=== PATIENT | female | born 1945 | race Caucasian/White ===

== ENCOUNTER → 2023-05-01 14:04 | Outpatient (BNVA) | payer MEDICARE, OTHER, SELFPAY | PROVIDERS: PCP Family Medicine; Referring Provider Nurse Practitioner Family; Visit Provider Physician Assistant | DX: M47.818 Spondylosis without myelopathy or radiculopathy, sacral and sacrococcygeal region; M16.11 Unilateral primary osteoarthritis, right hip; M51.36 Other intervertebral disc degeneration, lumbar region; M43.16 Spondylolisthesis, lumbar region; M48.061 Spinal stenosis, lumbar region without neurogenic claudication | CPT/HCPCS: 72110; 73502; 99204 ==

== ENCOUNTER 2023-05-16 07:40 | Outpatient (CLI) | payer MEDICARE, OTHER, SELFPAY ==
--- NOTE | 2023-05-16 08:00 | MR_ITS ---
WS: [id number] MRI LUMBAR SPINE NONCONTRAST TECHNIQUE: Sagittal T1, T2 and STIR imaging. Axial T1 and T2 imaging. CLINICAL INFORMATION: pain COMPARISON: None. FINDINGS: Mild lumbar curve. No acute compression. Slight retrolisthesis L2 on L3 and L3 on L4. Slight anteroli sthesis L4 on L5 and L5 on S1. L1-L2: Mild disc bulging with slight effacement of the ventral thecal sac. Slight narrowing of the le ft subarticular recess. Mild to moderate arthropathy. Mild left foraminal narrowing. L2-L3: Disc osteophyte complex with endplate ridging. Narrowing of the left greater than right subart icular recess. Moderate facet arthropathy. Mild left foraminal narrowing. L3-L4: Mild disc bulging with narrowing of the subarticular recess bilaterally. Moderate facet arthro [place]. Mild left greater than right foraminal narrowing. Moderate facet arthropathy. L4-L5: Grade 1 anterolisthesis. Mild to moderate central canal stenosis. Impingement of traversing L5 nerve roots. Advanced facet arthropathy. Mild to moderate right and no significant left foraminal na rrowing. L5-S1: Slight anterolisthesis L5 on S1. Advanced facet arthropathy. Mild left greater than right fora tea narrowing. Incidental Tarlov cyst in the sacrum. Tiny right renal cyst. Visualized pelvic bony structures: Normal. Paravertebral soft tissues: Normal. Chronic anterior wedging in the midthoracic spine on the credit product analyst imaging at T9. Moderate spondylitic ch anges cervical spine. IMPRESSION: 1. Lumbar scoliosis. No acute compression. 2. Grade 1 anterolisthesis L4 on L5 with mild to moderate central canal stenosis and impingement of the traversing L5 nerve roots bilaterally. 3. Mild to moderate right L4-5 foraminal narrowing. 4. Grade 1 anterolisthesis L5 on S1 with advanced facet arthropathy. 5. Narrowing of the left L2-3 and bilateral 3-4 subarticular recess. 6. Mild foraminal narrowing worse at left L2-3 and left L3-4. 7. Advanced facet arthropathy L4-L5 and L5-S1.
== END 2023-05-16 07:41 | disposition home or self-care (01) ==
PROVIDERS: PCP Family Medicine; Visit Provider Physician Assistant
DX: M41.9 Scoliosis, unspecified (principal); M48.061 Spinal stenosis, lumbar region without neurogenic claudication; M47.817 Spondylosis without myelopathy or radiculopathy, lumbosacral region
CPT/HCPCS: 72148

== ENCOUNTER → 2023-05-22 10:14 | Outpatient (BNVA) | payer MEDICARE, OTHER, SELFPAY | PROVIDERS: PCP Family Medicine; Visit Provider Physician Assistant | DX: M25.561 Pain in right knee (principal); M16.11 Unilateral primary osteoarthritis, right hip; M43.16 Spondylolisthesis, lumbar region; M51.36 Other intervertebral disc degeneration, lumbar region | CPT/HCPCS: 73560; 73565; 99214 ==

== ENCOUNTER → 2023-06-12 09:26 | Outpatient (BNVA) | payer MEDICARE, OTHER, SELFPAY | PROVIDERS: PCP Family Medicine; Visit Provider Anesthesiology Pain Medicine | DX: M43.16 Spondylolisthesis, lumbar region; M47.818 Spondylosis without myelopathy or radiculopathy, sacral and sacrococcygeal region; M51.36 Other intervertebral disc degeneration, lumbar region; M16.11 Unilateral primary osteoarthritis, right hip | CPT/HCPCS: 99205 ==

== ENCOUNTER → 2023-07-03 13:03 | Outpatient (BNVA) | payer MEDICARE, OTHER, SELFPAY | PROVIDERS: PCP Family Medicine; Visit Provider Anesthesiology Pain Medicine | DX: M16.11 Unilateral primary osteoarthritis, right hip | CPT/HCPCS: 20610; 77002; J1030; J3490 ==

== ENCOUNTER → 2023-07-16 12:54 | Outpatient (BNVA) | payer MEDICARE, OTHER, SELFPAY | PROVIDERS: PCP Family Medicine; Visit Provider Anesthesiology Pain Medicine | DX: M43.16 Spondylolisthesis, lumbar region; M47.818 Spondylosis without myelopathy or radiculopathy, sacral and sacrococcygeal region; M51.36 Other intervertebral disc degeneration, lumbar region; M16.11 Unilateral primary osteoarthritis, right hip | CPT/HCPCS: 99214 ==

== ENCOUNTER → 2023-08-28 13:05 | Outpatient (BNVA) | payer MEDICARE, OTHER, SELFPAY | PROVIDERS: PCP Family Medicine; Visit Provider Anesthesiology Pain Medicine | DX: M16.11 Unilateral primary osteoarthritis, right hip | CPT/HCPCS: 20610; 77002; J1030; J3490 ==

== ENCOUNTER → 2023-10-02 08:42 | Outpatient (BNVA) | payer MEDICARE, OTHER, SELFPAY | PROVIDERS: PCP Family Medicine; Visit Provider Anesthesiology Pain Medicine | DX: M43.16 Spondylolisthesis, lumbar region; M47.818 Spondylosis without myelopathy or radiculopathy, sacral and sacrococcygeal region; M51.36 Other intervertebral disc degeneration, lumbar region; M16.11 Unilateral primary osteoarthritis, right hip | CPT/HCPCS: 99214 ==

== ENCOUNTER → 2023-10-30 09:49 | Outpatient (BNVA) | payer MEDICARE, OTHER, SELFPAY | PROVIDERS: PCP Family Medicine; Referring Provider Anesthesiology Pain Medicine; Visit Provider Student in an Organized Health Care Education/Training Program | DX: M16.11 Unilateral primary osteoarthritis, right hip (principal) | CPT/HCPCS: 73502; 99204 ==

== ENCOUNTER → 2023-11-23 12:31 | Outpatient (BNVA) | payer MEDICARE, OTHER, SELFPAY | PROVIDERS: PCP Family Medicine; Visit Provider Family Medicine | DX: Z01.818 Encounter for other preprocedural examination (principal) | CPT/HCPCS: 80053; 81003; 85025 ==

== ENCOUNTER 2023-11-26 08:51 | Outpatient (CLI) | payer MEDICARE, OTHER, SELFPAY ==
--- NOTE | 2023-11-26 09:00 | CT_ITS ---
WS: [id number] CT RIGHT hip, noncontrast HISTORY: M16.11 - Unilateral primary osteoarthritis, right hip TECHNIQUE: Protocol for [facility] total hip replacement has been obtained. This includes axial imaging thr ough the RIGHT hip, RIGHT knee. DLP: 850.96 mGy COMPARISON: Radiograph 10/30/2023 Osteopenia. Advanced degenerative changes in the lower lumbar spine. Advanced facet joint arthritis. No sacral fracture. Bilateral narrowing of the hip joints. Greater narrowing of the RIGHT hip joint w ith increased subchondral cystic changes. Mild acetabular osteophytic ridging and cupping. There are no fractures. Normal appearance of the soft tissues. Calcified masses in the pelvis. These masses are associated with the uterus. Consistent with multifibroid uterus. Bilateral knee CT. Very mild bilateral subluxation of the patella. No bone destruction. IMPRESSION: CT imaging provided for [facility] robotic RIGHT total knee replacement. Fibroid uterus. Numerous fibroids are identified within the uterus.
== END 2023-11-26 08:52 | disposition home or self-care (01) ==
LOC: RAD 08:51
PROVIDERS: PCP Family Medicine; Visit Provider Student in an Organized Health Care Education/Training Program
DX: M16.11 Unilateral primary osteoarthritis, right hip (principal); Z96.651 Presence of right artificial knee joint; D25.9 Leiomyoma of uterus, unspecified
CPT/HCPCS: 73700

== ENCOUNTER → 2023-11-30 10:31 | Outpatient (BNVA) | payer MEDICARE, OTHER, SELFPAY | PROVIDERS: PCP Family Medicine; Visit Provider Family Medicine | DX: Z01.818 Encounter for other preprocedural examination (principal) | CPT/HCPCS: 81003 ==

== ENCOUNTER 2023-12-03 11:15 | Observation (INO) | payer MEDICARE, OTHER, SELFPAY ==
[2023-12-03] VITALS (22 sets, daily range): BP systolic 95–174; BP diastolic 58–90; PULSE 61–78; RESP 14–22; TEMP 25.5–37.1; O2SAT 92–100; BMI 24.0
[2023-12-03] MEDS: lactated ringers 500 ML IV (06:32)
[2023-12-03] MEDS: scopolamine 1.5 Patch 1 PATCH TRANSDERMA (06:38)
[2023-12-03] MEDS: ketorolac 30 mg/mL INJ IVP (06:38)
[2023-12-03] MEDS: acetaminophen 1,000 MG/100 ML PIGGYBACK 400 MG IV ×3 (06:38→22:41)
--- NOTE | 2023-12-03 06:51 | W.PM.OPSFHP ---
Same Day Surgery H&P Indication for Procedure/HPI DATE OF PROCEDURE: December 03, 2023 CHIEF COMPLAINT/INDICATIONFOR SURGICAL PROCEDURE: Right hip degenerative joint disease PREOP DIAGNOSIS: Right hip degenerative joint disease PLANNED PROCEDURE: Operation Date: 12/03/23 07:00 Proposed Procedures p Quan Robot Anterior Hip Arthroplasty(Right) - Floyd Arreguin DO Medications/Allergies* Home Medications Medication Instructions Recorded Confirmed Type aspirin 81 mg tablet,delayed 81 mg PO .QEVERY OTHER DAY 11/23/23 11/30/23 History release meloxicam 15 mg tablet 15 mg PO DAILY PRN Pain 11/23/23 11/30/23 History albuterol sulfate 90 mcg/actuation 2 puff inhalation Q6H PRN 11/30/23 11/30/23 History aerosol inhaler Shortness Of Breath Allergies/Adverse Reactions Allergy/AdvReac Type Severity Reaction Status Date / Time No Known Allergies Allergy Verified 11/23/23 11:41 Current Medications: Generic Name Dose Route Start Last Admin Trade Name Freq PRN Reason Stop Dose Admin Lactated Ringer's 500 mls @ 500 mls/hr 12/03/23 06:07 12/03/23 06:32 Lactated Ringers IV 12/03/23 07:06 500 mls/hr .Q1H ONE Administration Pertinent Exam Findings alert, oriented x 3, operative site marked and procedure specific exam findings Right hip: Right hip groin pain with severely limited range of motion with significant pain Recommendations Surgery/Procedure today Other Plans: Plan to proceed to the OR today with right total hip arthroplasty Quan robotic assisted through an anterior approach. Patient understands the ins and outs procedure risk benefits complication alternatives of surgery and through shared decision make elects proceed with surgical intervention. Patient's has been cleared by her preoperative clearance team has been appropriately treated for UA with no urinary symptoms today. This was verified with Dr. Kaur and she agrees patient's ready proceed with surgical intervention as optimized. All questions answered. Coding Level of Care Code Acute Code for Shawnarene uY
[2023-12-03] MEDS: sodium chloride 0.9% 1,000 ML 30 ML IV (06:52)
--- NOTE | 2023-12-03 06:58 | ANES.PREANE2 ---
Pre-Anesthetic Assessment Height/Weight: Height 1.63 m Weight 63.503 kg Temp Pulse Resp BP Pulse Ox O2 Del Method 98.0 F 64 18 174/90 98 Room Air 12/03/23 06:16 12/03/23 06:16 12/03/23 06:16 12/03/23 06:16 12/03/23 06:16 12/03/23 06:16 Preop Diagnosis: Right hip degenerative joint disease Operation Date: 12/03/23 07:00 Proposed Procedures p Quan Robot Anterior Hip Arthroplasty(Right) - Floyd Walleratt, DO Was Beta Nilda taken within 24 hours: N/A Was Clonidine taken within 24 hours: N/A Last intake: Intake Last Liquid Date 12/02/23 Last Liquid Time 19:30 Last Solid Date 12/02/23 Last Solid Time 06:00 Social No alcohol and No tobacco Exam alert and oriented x 3 Airway Submandibular: within normal limits Cervical ROM: within normal limits Mallampati: Class II History/ROS No significant history except as noted and No significant complaints Anesthetic Plan ASA status: 2 Anesthesia: General, MAC and Regional (specify below) Other: Spinal + sedation Risk of > 500 ml blood loss (7ml/kg in children): Yes, adequate IV access and fluids planned Medications/Allergies Home Medications Medication Instructions Recorded Confirmed Last Taken Type aspirin 81 mg tablet,delayed 81 mg PO .QEVERY OTHER DAY 11/23/23 11/30/23 11/27/23 History release meloxicam 15 mg tablet 15 mg PO DAILY PRN Pain 11/23/23 11/30/23 12/01/23 History albuterol sulfate 90 mcg/actuation 2 puff inhalation Q6H PRN 11/30/23 11/30/23 12/02/23 History aerosol inhaler Shortness Of Breath Allergies Allergy/AdvReac Type Severity Reaction Status Date / Time No Known Allergies Allergy Verified 11/23/23 11:41 Current Medications Generic Name Dose Route Start Last Admin Trade Name Freq PRN Reason Stop Dose Admin Sodium Chloride 1,000 mls @ 30 mls/hr 12/03/23 06:15 12/03/23 06:52 Sodium Chloride 0.9% IV 12/04/23 06:14 30 mls/hr .Q24H BOONE Administration Lactated Ringer's 500 mls @ 500 mls/hr 12/03/23 06:07 12/03/23 06:54 Lactated Ringers IV 12/03/23 07:06 Infused .Q1H ONE Infusion Data Anesthesia Cardiac Studies: No Data to Display
[2023-12-03] MEDS: ceFAZolin 2,000 MG in sodium chloride 0.9% (plus) 50 ML 100 MG IV ×3 (07:10→23:05)
[2023-12-03] MEDS: tranexamic acid 1,000 mg/10mL SDV 1000 MG IV (07:27)
[2023-12-03] MEDS: lidocaine-epi 1% 20 mL INJ INJECTION (08:17)
[2023-12-03] MEDS: vancomycin 1,000 MG SDV 1000 MG XX (08:18)
--- NOTE | 2023-12-03 11:15 | W.PM.BPON ---
Date of Procedure: [December 03, 2023] Surgeon: [Dr. Arreguin DO] Equipment Cleaner And Tester(s): [John Arreguin PA-C] Procedure(s) performed: [Right total hip arthroplasty anterior approach with Quan robotic assist] Findings of the procedure(s): [Osteoarthritis of right hip] Estimated blood loss: [300 ml] Specimen(s) removed: [Femoral head] Post-operative diagnosis: [Osteoarthritis of right hip]
--- NOTE | 2023-12-03 11:27 | PM.OP ---
Operative Report Date of procedure: December 03, 2023 Surgeon: Floyd Arreguin DO Sales Representative Business Courses: John Arreguin PA-C: PA was necessary for assistance in this case with leg positioning retraction and protection of neurovascular structures as well as assistance in implantation wound closure and dressing application. Procedure: Preoperative diagnosis: Right hip degenerative joint disease post-op diagnosis: Same Procedure done: Right total hip arthroplasty?Quan robotic assisted?anterior?approach Implants: Rosy Trident acetabular shell size 50 mm [place] acetabular screw 30 mm Rosy acetabular screw 25 mm Accolade II 132 degree size 6? femur stem Trident 0 degree polyethylene 36 degree inner diameter 36 mm femoral head ceramic -2.5 mm Surgeon: Floyd Arreguin DO Anesthesia: Other (Spinal) Estimated blood loss: 300 mL IV fluids: 1200 mL Complications: None Findings: See operative report narrative Condition: stable Disposition: floor Brief History: Patient is a 78-year-old female presented to my outpatient office setting findings consistent with [id number] arthritis advanced degenerative joint disease of the right hip.? We talked about treatment options as far as nonoperative and operative intervention. Pt has failed conservative treatment.? Patient's right hip degenerative joint disease has been so severe she has been minimally ambulatory over the past couple months given her pain and decreased range of motion.? we talked about treatment options at this point time pt understands the risk benefits complication alternatives surgical nonsurgical treatment options.? Patient understands the risk of surgery and agrees to proceed.? Patient has underwent a preoperative evaluation. Pt cleared for surical intervention. Pt understood and was agreeable to proceed with a right total hip arthroplasty consent was reviewed and signed with patient.?? All questions answered.? Patient will be admitted postoperatively. Procedure: Patient was seen evaluated in the preoperative holding area.? Consent was reviewed and signed with patient.? Correct operative extremity was then marked. ? All questions were answered at this time.? Once cleared by anesthesia used to brought back to the operative suite he then underwent anesthesia per the anesthesia department of a spinal anesthetic. The patient was administered tranexamic acid and preop antibiotics, and placed in the supine position. All bony prominences were properly padded, securely fixed to the table, and administered?general?anesthetic. The patient was subsequently transferred from the hospital bed to the [place] table. Bilateral lower extremities were placed in the traction boots. The pelvis was well approximated against the perineal post.? Final timeout performed.? Patient received appropriate preoperative antibiotics. Both hips were then prepped and draped in a normal orthopedic fashion.? Started with a small incision 2 fingerbreadths above the ASIS on the left iliac wing to place? pelvic arrays.? Small incision was made directly down to bone.? 3 pelvic pins were placed with excellent fixation.? The robotic array was secured to the nonoperative iliac wing using sterile technique. The extremity was then definitively draped in standard, sterile fashion.? The array was found to be visible by the robot. ?A standard??anterior?supine approach was performed to the?operative hip joint. The skin was incised down to the tensor fascia verenice muscle and fascia. Fascia was split longitudinally in line with its fibers. The tensor fascia verenice muscle was retracted laterally. The appropriate retractors were placed superiorly. Lateral circumflex vessels were identified and appropriately ligated. The hip capsule was then identified.? Appropriate retractors were placed superiorly and inferiorly along the capsule directly onto bone.??That was split longitudinally up to the acetabular rim in line with the femoral neck. The femoral capsule was found to be significantly hypertrophic, thickened, and significantly fibrotic. The capsule was then elevated both superiorly and inferiorly down to the lesser trochanter as well as up towards the greater trochanter.? Tag stitches were applied with 0 Vicryl into the capsule.? Femoral check point was?then inserted and confirmed on the lateral trochanter proximal femur.? .? A distal marker?of a sterile EKG lead was placed into the distal femur for measurement of leg lengths.? Preoperative leg lengths were registered and confirmed at this point. Next the appropriate-sized neck cut was then performed after being measured with robotic assistance. Femoral head was removed atraumatically this was found to have significant degenerative changes and deformity with significant osteophyte formation.? Femoral head was found to be severely degenerated and flattening with, eburnated bone. Acetabulum was also inspected and was found to have peripheral osteophytes as well as no evidence of cartilage consistent with [id number] arthritis.? Appropriate retractors were then placed in the?anterior?and posterior wall.? The remaining labrum was then excised from the periphery of the acetabular rim. Pulvinar was excised.? At this point registration for the Uqan was performed on the acetabular side and confirmed. Once confirmed, any osteophytes able to be were removed. We planned 40 degrees of lateral opening and 20 degrees of anteversion. At this point, we reamed and medialized to the inner wall of the acetabulum with a size?50?reamer for line to line fit.?The acetabulum was found to have good bleeding bone throughout.?? Reamer removed excellent bleeding bone circumferentially with sufficient?anterior?and posterior wall. ?The definitive acetabular cup 50 mm was inserted and impacted under?Quan guidance with the appropriate amount of anteversion and lateral opening. It was then secured with 2x 6.5 mm cancellous screws in appropriate safe zone position.? I subsquently drilled measured and place appropriate length acetabular screws which measured 30 mm and 25 mm.? These had excellent fixation final x-rays were taken of the acetabular work and showed a seated and well fixed acetabular cup with appropriate position acetabular screws.? ?Next a 36-mm X3 neutral liner was impacted into the?acetabular shell and secured. Hip was then irrigated with copious amounts of irrigation. At this point, the remaining femoral releases were then performed allowing the adequate mobilization of the?right?femur.? Traction was confirmed to being off to the right lower extremity and the femur was then externally rotated, extended, and adducted giving adequate exposure of the proximal femur in the surgical wound. Box cut was then used to enter the intramedullary canal of the?femur. Canal finder was placed down the canal of the?operative femur. Appropriate-sized broaches from a size 0 up to a size 3. Were impacted down the operative femoral canal with the appropriate amount of anteversion.? A multiple trials were attempted and it was found?that?+0mm neck was found to be most appropriate for a soft tissue tensioning offset, stability and the leg lengths?that was confirmed with Quan. Leg lengths were appropriate however stem was in subtle varus and as result this was secondary to my femur checkpoint being in the way inhibiting further lateralization as result decision was made at this point in time to remove the checkpoint to allow for appropriate stent placement we utilized fluoroscopic imaging for finalized leg lengths. The size 3 standard was then subsequently removed and then subsequently sequentially brie lateralized with right tooth rasp and sequentially broached up from 0 to size 5. I then trialed a size 5 with a standard. Patient was noted to have excellent stability but had some increase in her leg length and as result we had room to go down on her size. This was then dislocated there is still little toggle in the 5 stem and as result I broached up to a size 6 stem and this was at satisfactory placement. I then utilized the calcar planer and then trialed with a -2.5 mm head was found to have excellent leg lengths were?stability was then assessed and excellent stability with patient external rotation of greater?than 90 degrees and traction with no evidence of hip instability.? Appropriate tension noted of the soft tissues this was determined to be in my final implant. Operative hip was then re-dislocated using a bone hook. All trials were then removed from the?operative femur. Adequate exposure was then once again obtained. The trials were removed. The definitive Accolade II stem size 6 was impacted down the?femoral canal with the appropriate amount of anteversion. The appropriate sized head 36 mm ceramic -2.5 mm was impacted onto the trunnion, and the?operative?hip was then relocated with traction and internal rotation. Final measurements were taken utilizing fluoroscopic imaging and matched the lesser trochanters had appropriate leg lengths.? Once again hip stability was assessed and found to have excellent stability and appropriate soft tissue tensioning.? Hip was irrigated with copious amounts of irrigation.? Vancomycin powder was placed within the wound bed for added infection prophylaxis.? The superior and inferior leaflets of the capsule were then closed with Ethibond suture.? Vicryl tag stitches were removed.? The superficial layer of the tensor fascia verenice fascia was closed using 0 stratafix suture in a running fashion.? Subcutaneous tissues were closed with running 3-0 Stratafix, skin was closed with 4-0 monocryl.?Surgical Prineo glue and steri strips were?applied and covered with a raul dressing to the operative side.?The incision on the non-operative side for the robotic array was irrigated and closed with layered fashion of 0 Vicryl, 2-0 Vicryl and running Monocryl suture and surgical glue and covered with Silverlon. ?The patient was subsequently awoken per Anesthesia and transferred to PACU in satisfactory condition. ?Leg lengths and rotational profile were found to be appropriate. ? DISPOSITION: The patient will be admitted to the hospital for initiation of DVT prophylaxis, physical therapy, pain control. The patient is to weight bear as tolerated.?Anterior?hip precautions, postoperative antibiotics,?postoperative TXA and Eliquis?for DVT prophylaxis.? Patient will receive appropriate discharge instructions as well as pain medication postoperatively and will follow up in my office in 2 weeks.? Patient with work with PT/OT.? Internal medicine will be consulted for medical management
--- NOTE | 2023-12-03 11:35 | XRR_ITS ---
PROCEDURE INFORMATION: Exam: XR Right Hip Exam date and time: 12/03/2023 12:02 PM Age: 78 years old Clinical indication: Device placement; Prior surgery; Surgery date: Post-operative (0-2 days); Surgery type: Right fariba; Additional info: Post op fariba, do in pacu TECHNIQUE: Imaging protocol: Radiologic exam of the right hip. Views: 1 view hip with pelvis when performed. COMPARISON: CT hip RT [facility] [id number] 11/26/2023 9:05 AM FINDINGS: Bones/joints: Total hip replacement. Anatomic alignment. Bone and metal are intact. Mild degenerative changes of the left hip. Periarticular gas. No acute fracture. Soft tissues: Unremarkable. Vasculature: Pelvic calcifications probably fibroids plus phleboliths. XR/XR hip RT 2-3V wo/w pel* [id number] IMPRESSION: Hip replacement.
--- NOTE | 2023-12-03 11:45 | PM.PACU ---
PACU note Narrative: Patient is a 78-year-old female just underwent a right hip total arthroplasty. Pt transferred to PACU in stable condition. Dressing is dry. pt is awake and alert. pt can wiggle toes and plantarflex and dorsiflex foot. Distal pulses are palpable toes are warm and well-perfused. Cap refill is normal and under 2 seconds. Sensation to foot is intact. Pain is controlled. Exam: awake Disposition: admitted
[2023-12-03] MEDS: multivitamin therapeutic Tablet 1 TAB PO (13:32)
[2023-12-03] MEDS: iron polysaccharide complex 150 mg Capsule PO (13:32)
[2023-12-03] MEDS: sennosides-docusate Tablet 2 TAB PO ×2 (13:32→18:11)
[2023-12-03] MEDS: calcium carb-vit d 600mg/400unit 1 Tablet 1 EACH PO ×2 (13:32→18:11)
[2023-12-03] MEDS: mupirocin oint 22 gm 1 APPLIC NASAL ×2 (13:33→18:12)
[2023-12-03] MEDS: chlorhexidine gluconate 0.12% Btl 473 mL 30 ML MUCOUS MEM ×3 (13:33→20:58)
[2023-12-03] MEDS: ketorolac 30 mg/mL INJ 15 MG IVP (13:34)
[2023-12-03] MEDS: TRAMadol 50 mg Tablet PO (14:23)
[2023-12-03 15:03] LABS: Basophils % 0.2 %; Hematocrit 36.7 % (36-47); Lymphocytes # 0.5 10^3/uL (0.8-4.8); Lymphocytes % 3.6 %; Mean Corpuscular HGB Conc 31.9 g/dL (30-55); Mean Corpuscular Hemoglobin 29.3 pg (27-33); Mean Platelet Volume 10.4 fL (7.4-10.4); Monocytes # 0.2 10^3/uL (0.2-0.9); Monocytes % 1.6 %; Neutrophils # 13.73 10^3/uL (1.8-7.7); Neutrophils % 94.1 %; Nucleated Red Blood Cells % 0 %; Platelet Count 252 10^3/cmm (157-399); Red Blood Count 3.99 10^6/uL (3.85-5.65); Red Cell Distribution Width 12.4 % (12.1-15.1)
[2023-12-03 15:19] LABS: Anion Gap 15.7 (5-19); Blood Urea Nitrogen 19 mg/dL (8-23); Carbon Dioxide 22 mmol/L (22-29); Chloride 104 mmol/L (98-107); Creatinine Clr Calc Pharmacy 54.1275; Glucose 213 mg/dL (65-115); Osmolality Calculated 293 mOsm/kg (285-295); Potassium 4.7 mmol/L (3.5-5.1); Sodium 137 mmol/L (136-145)
[2023-12-03] MEDS: lactated ringers 1,000 ML 100 ML IV (18:11)
[2023-12-03] MEDS: tranexamic acid 1,000 MG/100 ML PREMIX 600 MG IV (18:16)
--- NOTE | 2023-12-03 19:55 | ANE.PACU2 ---
Inpatient post-anesthesia follow up: Airway intact: Yes Vital signs: Temperature 97.5 F Pulse Rate 72 Respiratory Rate 18 Blood Pressure 110/68 Pulse Oximetry 94 Oxygen Delivery Me thod Room Air Oxygen Flow Rate 5 Fraction of Inspir ed Oxygen Hydration adequate: Yes Nausea and vomiting: No Pain level: 3 Mental status: Baseline
[2023-12-03] MEDS: calcium carbonate 500 mg Chew Tablet PO (20:59)
--- NOTE | 2023-12-04 02:47 | P.CONIM_ITS ---
Providers/Reason For Consult 2 Consulting Physician/Specialty*: Juana Dotson MD/ Hospitalist Reason for Consult*: Management of medical comorbidities Requesting Physician: Floyd Arreguin DO Attending Physician: Floyd Arreguin DO Primary Care Provider: Az Eisenberg History of Present Illness History of Present Illness Colleen Watt is a 78 year old female with a past medical history of asthma, degenerative arthritis, who is currently admitted to the hospital on December 03, 2023 for planned right total hip arthroplasty. Patient underwent a procedure earlier today. Estimated blood loss 300 cc. Pain is currently well- controlled. Denies any current concerns. She denies any current chest pain dyspnea palpitations or syncope. Denies any fever chills nausea vomiting or diarrhea. Review of systems overall negative. Review of Systems 2 General: Reports: 10 or more systems reviewed and unremarkable except in HPI and below Const: Denies: fever(s), chills or body aches Eyes: Denies: change in vision, blurry vision or photophobia ENMT: Reports: hoarseness; Denies: throat pain, enlarged tonsils, odynophagia or nasal congestion Card: Denies: chest pain, palpitations, irregular heart rhythm, edema, swelling of feet/ankles, lightheadedness, pre-syncope, dyspnea on exertion or orthopnea Resp: Denies: dyspnea, productive cough, non-productive cough, wheezing, stridor, pain on inspiration, change in phlegm color, hemoptysis or chest congestion GI: Denies: abdominal pain, nausea, vomiting, hematemesis, coffee ground emesis, dysphagia, heartburn, diarrhea, constipation, GI cramping, change in stool character, hematochezia or melena : Denies: flank pain, difficulty voiding, dysuria, urinary frequency, urinary urgency, urinary hesitancy or hematuria Musc: Denies: neck pain, back pain, extremity pain, joint swelling, joint warmth or deformity Neuro: Denies: headache(s), numbness in extremities, weakness in extremities, sensory changes, difficulty walking, frequent falls, dizziness, vertigo, behavioral changes, Slurred speech present or seizure-like activity Psych: Denies: anxiety, depression, suicidal ideation or homicidal ideation Endo: Denies: polyuria, polydipsia, tired all the time, cold intolerance or hot flashes Gregorio/Lymph: Denies: easy bruising or easy bleeding Medications/Allergies Home Medications Medication Instructions Recorded Confirmed Last Taken Type aspirin 81 mg tablet,delayed 81 mg PO .QEVERY OTHER DAY 11/23/23 11/30/23 11/27/23 History release meloxicam 15 mg tablet 15 mg PO DAILY PRN Pain 11/23/23 11/30/23 12/01/23 History albuterol sulfate 90 mcg/actuation 2 puff inhalation Q6H PRN 11/30/23 11/30/23 12/02/23 History aerosol inhaler Shortness Of Breath Allergies Allergy/AdvReac Type Severity Reaction Status Date / Time No Known Allergies Allergy Verified 11/23/23 11:41 Current Medications Generic Name Dose Route Start Last Admin Trade Name Freq PRN Reason Stop Dose Admin Calcium Carbonate 1 each 12/03/23 12:24 12/03/23 18:11 Calcium Carb-Vit D 600mg/400unit 1 Tablet PO 1 each BID BOONE Administration Calcium Carbonate 500 mg 12/03/23 19:23 12/03/23 20:59 Calcium Carbonate 500 Mg Chew Tablet PO 500 mg Q4H PRN Administration INDIGESTION Chlorhexidine Gluconate 30 ml 12/03/23 12:24 12/03/23 20:58 Chlorhexidine Gluconate 0.12% Btl 473 Ml MUCOUS MEM 30 ml QID BOONE Administration Lactated Ringer's 1,000 mls @ 100 mls/hr 12/03/23 12:24 12/03/23 18:11 Lactated Ringers IV 100 mls/hr .Q10H BOONE Administration Acetaminophen 1,000 mg in 100 mls @ 400 mls/hr 12/03/23 14:30 12/03/23 23:06 Acetaminophen IV 12/04/23 06:44 Infused Q8H BOONE Infusion Cefazolin Sodium 2,000 mg/ 50 mls @ 100 mls/hr 12/03/23 15:00 12/03/23 23:41 Sodium Chloride IV 12/04/23 07:29 Infused Q8H BOONE Infusion Protocol Ketorolac Tromethamine 15 mg 12/03/23 12:24 12/03/23 13:34 Ketorolac 30 Mg/Ml Inj IVP 15 mg Q6H PRN Administration MODERATE TO SEVERE PAIN Multivitamins Therapeutic 1 tab 12/03/23 12:24 12/03/23 13:32 Multivitamin Therapeutic Tablet PO 1 tab DAILY BOONE Administration Mupirocin 1 applic 12/03/23 12:24 12/03/23 18:12 Mupirocin Oint 22 Gm NASAL 12/08/23 12:23 1 applic BID BOONE Administration Polysaccharide Iron Complex 150 mg 12/03/23 12:24 12/03/23 18:12 Iron Polysaccharide Complex 150 Mg Capsule PO Not Given BIDWM BOONE Senna/Docusate Sodium 2 tab 12/03/23 12:24 12/03/23 18:11 Sennosides-Docusate Tablet PO 2 tab BID BOONE Administration Tramadol HCl 50 mg 12/03/23 12:24 12/03/23 14:23 Tramadol 50 Mg Tablet PO 50 mg Q4H PRN Administration MILD PAIN Vitals/I&O/Wt Last Vital Signs Temp 98.3 F 12/03/23 23:54 Pulse 63 12/03/23 23:54 Resp 18 12/03/23 23:54 BP 95/59 12/03/23 23:54 Pulse Ox 94 12/03/23 23:54 O2 Del Method Room Air 12/03/23 17:15 O2 Flow Rate 5 12/03/23 11:30 12/03/23 12/03/23 12/04/23 14:59 22:59 06:59 Intake Total 1363.333 / 1363.333 476.667 / 1840.000 150 / 1990.000 Output Total 700 / 700 325 / 1025 Balance 663.333 / 663.333 151.667 / 815.000 150 / 965.000 Weight last 48 hrs Weight 63.503 kg Weight 63.503 kg Physical Exam 2 Narrative: General: No acute distress, AO x3 HEENT: PERRLA, pupils bilaterally equal and reactive, pallors not present Chest: Scattered mild wheezing to auscultation bilaterally CVS: S1-S2 regular, no murmurs, no tachycardia, no gallops, no rubs Abdomen: Soft, nontender, no organomegaly, bowel sounds present Neuro: No focal deficits, no facial deformity, AO x3, power 5/5 in all limbs Data 12/03/23 14:45 12/03/23 14:45 A&P Assessment and plan (1) Osteoarthritis of right hip: Status post surgical intervention Reports pain is well-controlled currently. No complaints at this time in this regard. (2) Asthma: Chronic stable intermittent asthma since age 9. States that she needs to take as needed albuterol once every 2 to 3 days. States that usually asthma is triggered by exertion, climbing uphill. Noted to have intermittent scattered wheezing today, however patient states she feels asymptomatic. Declines albuterol nebulization at this time. States that she will request treatment if she feels symptomatic. Saturating 94% on room air. Able to have a conversation without any obvious dyspnea. Ordered for albuterol 2.5 mg every 4 hours as needed inhalation Consult Attestations 2 Medical Necessity Statement: per admitting Coding Level of Care Code Acute Code for Chg Fwd Low MDM includes number and complexity of problems actively addressed during encounter, amount and/or complexity of data reviewed/ordered and described risk of complication, morbidity or mortality of management as documented Diagnoses Osteoarthritis of right hip M16.11 Asthma J45.909
[2023-12-04 03:53] VITALS: BP 123/69; PULSE 63; RESP 18; TEMP 36.7; O2SAT 94
[2023-12-04] MEDS: lactated ringers 1,000 ML 100 ML IV (05:00)
[2023-12-04] MEDS: acetaminophen 1,000 MG/100 ML PIGGYBACK 400 MG IV (05:48)
[2023-12-04 06:03] LABS: Eosinophils % 0.3 %; Lymphocytes # 1.2 10^3/uL (0.8-4.8); Lymphocytes % 11.9 %; Mean Corpuscular Hemoglobin 29.1 pg (27-33); Mean Corpuscular Volume 90.9 fl (85-98); Monocytes # 1.1 10^3/uL (0.2-0.9); Monocytes % 10.5 %; Neutrophils # 7.98 10^3/uL (1.8-7.7); Neutrophils % 76.8 %; Nucleated Red Blood Cells % 0 %; Platelet Count 177 10^3/cmm (157-399); Red Cell Distribution Width 12.6 % (12.1-15.1); White Blood Count 10.39 10^3/uL (3.29-11.43)
[2023-12-04] MEDS: ceFAZolin 2,000 MG in sodium chloride 0.9% (plus) 50 ML 100 MG IV (06:06)
[2023-12-04 06:22] LABS: Anion Gap 14.6 (5-19); Blood Urea Nitrogen 15 mg/dL (8-23); Calcium 8.8 mg/dL (8.5-10.5); Carbon Dioxide 24 mmol/L (22-29); Chloride 103 mmol/L (98-107); Creatinine Clr Calc Pharmacy 55.8311; Glucose 111 mg/dL (65-115); Osmolality Calculated 286 mOsm/kg (285-295); Potassium 4.6 mmol/L (3.5-5.1); Sodium 137 mmol/L (136-145)
[2023-12-04 07:32] VITALS: BP 106/65; PULSE 68; RESP 14; TEMP 36.4; O2SAT 95
--- NOTE | 2023-12-04 08:28 | P.PN_ITS ---
Subjective 2 Subjective: Colleen reports she is doing well after her hip surgery. States she is able to get up and walk some. Medications: Reviewed: Yes Vitals/I&O/Wt Last Vital Signs Temp 97.6 F 12/04/23 07:32 Pulse 68 12/04/23 07:32 Resp 14 12/04/23 07:32 BP 106/65 12/04/23 07:32 Pulse Ox 95 12/04/23 07:32 O2 Del Method Room Air 12/04/23 07:32 O2 Flow Rate 5 12/03/23 11:30 12/03/23 12/04/23 12/04/23 22:59 06:59 14:59 Intake Total 476.667 / 7721.660 6818 / 3140.000 Output Total 325 / 1025 Balance 151.667 / 583.766 9396 / 2115.000 Weight last 48 hrs Weight 68.084 kg Weight 63.503 kg Weight 63.503 kg Physical Exam 2 Narrative: General exam no distress Cardiovascular regular rate and rhythm Lungs clear Extremities no cyanosis clubbing or edema Data 12/04/23 05:31 12/04/23 05:31 A&P Assessment and plan (1) Osteoarthritis of right hip: Status post surgical intervention Pain controlled. She reports she is able to ambulate Minimal acute postoperative blood loss anemia. No need for blood transfusion. Repeat CBC tomorrow if she stays. (2) Asthma: Currently stable. No wheezing on exam. Albuterol as needed Attestations 2 Medical Necessity Statement*: As per primary Diagnoses Osteoarthritis of right hip M16.11 Asthma J45.909 Time Spent (min) 10
[2023-12-04] MEDS: apixaban 5 mg Tablet 2.5 MG PO (09:14)
[2023-12-04] MEDS: TRAMadol 50 mg Tablet PO (09:14)
[2023-12-04] MEDS: calcium carb-vit d 600mg/400unit 1 Tablet 1 EACH PO (09:14)
[2023-12-04] MEDS: multivitamin therapeutic Tablet 1 TAB PO (09:14)
[2023-12-04] MEDS: sennosides-docusate Tablet 2 TAB PO (09:14)
[2023-12-04] MEDS: iron polysaccharide complex 150 mg Capsule PO (09:14)
[2023-12-04 09:43] VITALS: PULSE 67; RESP 16; O2SAT 92
--- NOTE | 2023-12-04 09:54 | PC.CHAP ---
Pastoral Care Encounter/Spiritual Assessment Type of Contact [] Declined maintenance shop welder visit [] Patient/Family/Request visit [] Outpatient visit [] Follow-up visit [] Physician referral [] Code/Alert [x] Routine visit [] Staff referral [] Actively dying [] Patient sleeping [] Family support [] [] Out of room [] Palliative care [] [] Receiving care in room [] Pre-surgical visit [] Trauma [] Long length of stay [] ICU visit [] Other: Relational/Emotional Strength [x] Patient feels connected with others/family/visitors/staff [] Distress [] Loneliness/isolation [] Abandonment Spirituality of Patient [x] Person of Anastasia [x] Attends Sabianism of their Anastasia [x] Believes in Prayer [x] Reads Bible or Jain materials [] There are Spiritual issues to be addressed Crystal Report Developer Interventions [x] Prayer [x] Active listening [] Non-anxious presence []x Spiritual/emotional support [] Crisis/trauma care [] Spiritual counseling [] Bereavement support [] Provided bereavement packet [] Provided Bible/devotional materials [] Provided toy/stuffed animal, coloring book to patient or family member [] Provided Communion [] Anointing/[place] [] Salvation [x] Completed spiritual assessment [] Other: Impact on Illness or Injury [] Angry [] Fearful [] Anxious [] Often cries [] Exhaustion [] Unable to work [] Unable to attend anabaptism [] Unable to walk/stand [] Unable to read [] Unable to drive [] Unable to eat/drink [] Unable to sleep [] Unable to be with family [] Patient intubated [] Other: Summary Time spent with patient 5 min
--- NOTE | 2023-12-04 10:22 | P.DS_ITS ---
Discharge Providers Date of Admission: 12/03/23 11:15 Date of Discharge: December 04, 2023 Attending Provider at Admission: Floyd Arreguin DO Attending Provider at Discharge: Floyd Arreguin DO Consults: Dr. Dotson?hospitalist Primary Care Provider: Az Eisenberg Diagnoses at Discharge Discharge Diagnosis (1) Osteoarthritis of right hip: Status: Resolved (2) Asthma: Status: Acute Reason for Visit Reason for Visit: M16.11 Brief History: Status post right total hip arthroplasty Quan robotic assisted Hospital Course Hospital Course Patient was brought to the hospital through the preoperative holding area with plan for right total hip arthroplasty for [right ] hip dengerative joint di zane. Once cleared by anesthesia for surgery subsequently was taken back to the operative suite underwent anesthesia per the anesthesia department and then underwent [right ] total hip arthroplasty with Quan robotic assistance anterior approach without any complications. Patient was then subsequently taken back to PACU in stable condition recovering well. Once recovered, patient was then subsequently admitted to the floor postoperatively. Internal medicine was consulted for medical management assistance. Patient weightbearing as tolerated to the right lower extremity, anterior hip precautions. PT/OT. Pain control. DVT prophylaxis. Postoperative antibiotics and TXA. dressing was change as needed. Internal medicine was on board and appreciate their medical management and assistance. Pt was determined on postoperative day [ 1] the patient was stable for discharge from orthopedic as well as internal medicine standpoint. Patient's labs were monitored daily. Patient will receive appropriate pain medication as well as DVT prophylaxis postoperatively. Appropriate discharge instructions as well. Patient was then discharged in stable condition. Patient will discharge home. Pt will follow-up with Orthopedics in the office in 2 weeks. Patient understands and agrees with current plan. All questions answered. Understands there is any issues or concerns and contact the office. Physical Exam Narrative: Orthopedic specific examination: Dressings on in place clean dry and intact normal postoperative swelling to the right hip. Patient able to wiggle toes plantarflex and dorsiflex ankle. Patient is able to perform straight leg raise. Sensations intact to light touch distally. Compartments soft and compressible. Distal pulses palpable. Discharge Data Studies Completed and Pending Completed Studies During Hospitalization Category Date Time Status XR hip RT 2-3V wo/w pel* [id number] Routine Exams 12/03/23 11:35 Completed Pending at discharge Category Date Time Status Basic Metabolic Panel AM LABS Lab 12/05/23 04:00 Ordered Basic Metabolic Panel AM LABS Lab 12/06/23 04:00 Ordered Complete Blood Count w/Auto AM LABS Lab 12/05/23 04:00 Ordered Complete Blood Count w/Auto AM LABS Lab 12/06/23 04:00 Ordered Radiology Impressions Hip/Pelvis X-Ray 12/03/23 11:35 IMPRESSION: Hip replacement. Laboratory Results WBC 10.39 10^3/uL (3.29-11.43) 12/04/23 05:31 RBC 3.30 10^6/uL (3.85-5.65) L 12/04/23 05:31 Hgb 9.60 g/dL (11.27-16.99) L 12/04/23 05:31 Hct 30.0 % (36-47) L 12/04/23 05:31 MCV 90.9 fl (85-98) 12/04/23 05:31 MCH 29.1 pg (27-33) 12/04/23 05:31 MCHC 32.0 g/dL (30-55) 12/04/23 05:31 RDW 12.6 % (12.1-15.1) 12/04/23 05:31 Plt Count 177 10^3/cmm (157-399) 12/04/23 05:31 MPV 11.0 fL (7.4-10.4) H 12/04/23 05:31 Neut % (Auto) 76.8 % 12/04/23 05:31 Lymph % (Auto) 11.9 % 12/04/23 05:31 [place] % (Auto) 10.5 % 12/04/23 05:31 Eos % (Auto) 0.3 % 12/04/23 05:31 Baso % (Auto) 0.0 % 12/04/23 05:31 Neut # (Auto) 7.98 10^3/uL (1.8-7.7) H 12/04/23 05:31 Lymph # (Auto) 1.2 10^3/uL (0.8-4.8) 12/04/23 05:31 [place] # (Auto) 1.1 10^3/uL (0.2-0.9) H 12/04/23 05:31 Eos # (Auto) 0.0 10^3/uL (0.0-0.8) 12/04/23 05:31 Baso # (Auto) 0.0 10^3/uL (0.0-0.1) 12/04/23 05:31 Nucleated RBC % (auto) 0 % 12/04/23 05:31 Nucleated RBCs # 0.0 /100WBC 12/04/23 05:31 Sodium 137 mmol/L (136-145) 12/04/23 05:31 Potassium 4.6 mmol/L (3.5-5.1) 12/04/23 05:31 Chloride 103 mmol/L (98-107) 12/04/23 05:31 Carbon Dioxide 24 mmol/L (22-29) 12/04/23 05:31 Anion Gap 14.6 (5-19) 12/04/23 05:31 BUN 15 mg/dL (8-23) 12/04/23 05:31 Creatinine 0.7 mg/dL (0.5-0.9) 12/04/23 05:31 GFR Calculation Not Reportable 12/04/23 05:31 Glucose 111 mg/dL (65-115) 12/04/23 05:31 Calculated Osmolality 286 mOsm/kg (285-295) 12/04/23 05:31 Calcium 8.8 mg/dL (8.5-10.5) 12/04/23 05:31 Blood Type A Negative 12/03/23 06:30 Rho(D) Type Rh negative 12/03/23 06:30 Antibody Screen Negative 12/03/23 06:30 Vitals Last Vital Signs Temp 97.6 F 12/04/23 07:32 Pulse 67 12/04/23 09:43 Resp 16 12/04/23 09:43 BP 106/65 12/04/23 07:32 Pulse Ox 92 12/04/23 09:43 O2 Del Method Room Air 12/04/23 09:43 O2 Flow Rate 5 12/03/23 11:30 Discharge Plan Discharge Patient Disposition: Home Condition: Stable Prescriptions: New Eliquis 2.5 mg tablet 2.5 mg PO BID 35 Days Qty: 70 0RF oxycodone 5 mg tablet 5 mg PO Q6H PRN (Reason: pain postop) 7 Days Qty: 28 0RF Continued albuterol sulfate 90 mcg/actuation HFA aerosol inhaler 2 puff INHALATION Q6H PRN (Reason: Shortness Of Breath) Held aspirin 81 mg tablet,delayed release (DR/EC) 81 mg PO .QEVERY OTHER DAY Hold Instructions: Resume on 01/01/24. Discontinued meloxicam 15 mg tablet 15 mg PO DAILY PRN (Reason: Pain) Discharge Orders: Discharge Order (Routine); Ordered 12/04/23 Ordered By: Floyd Arreguin Referrals: Az Eisenberg [Primary Care Provider] - 12/12/23 1:00 pm (APPOINTMENT AT [facility]) Floyd Arreguin DO [Physician] - 12/18/23 1:15 pm Discharge Diet: Advance as tolerated Discharge Activity: Limit activity as instructed Patient Instructions: Oxycodone, Rapid Release (By mouth), Ondansetron (By mouth) (Zofran, Zofran ODT, Zuplenz), Ondansetron (By mouth), Apixaban (By mouth) (Eliquis), Apixaban (By mouth), Osteoarthritis (DC), Joint Replacement Surgery (DC), Anterior Hip Replacement (GEN), Joint Replacement Stoplight, Opioid Safety Activity Restrictions/Additional Instructions: Orthopedic discharge instructions: Patient should keep dressings clean dry and intact Okay to shower over dressings if they do become wet these should be removed and new dressings applied Keep incisions clean dry and intact, leave raul bandage dressings on in place for 7 days after that may remove dressing, okay to rinse incisions with warm soapy water pat dry and redress with a dry dressing (Silverlon bandage dressing) Weight-bear as tolerated to operative lower extremity Anterior hip precautions as instructed by physical therapy Ice as needed for pain and swelling Take pain medication as prescribed Take antinausea medication as needed Supplement with Citracal vitamin D for bone health and healing Take Colace as needed for constipation Take blood thinner as prescribed (Eliquis) Follow-up in the orthopedic office in 2 weeks Contact the office for any questions or concerns Discharge Attestations Time Spent in Discharge Care*: less than 30 min Quality Metrics Clinical Quality Measures [ No reported AMI, CVA or VTE this stay] Coding Level of Care Code Acute Code for [facility] Fwd Diagnoses Osteoarthritis of right hip M16.11 Asthma J45.909
[2023-12-04 11:20] VITALS: BP 128/74; PULSE 65; RESP 16; TEMP 36.4; O2SAT 97
[2023-12-04 14:22] VITALS: BP 128/74; PULSE 65; RESP 16; TEMP 36.4; O2SAT 97
== END 2023-12-04 14:23 | disposition home or self-care (01) ==
LOC: MEDSURG 11:16
PROVIDERS: Physician Assistant; Admitting Provider Student in an Organized Health Care Education/Training Program; PCP Family Medicine; Visit Provider Student in an Organized Health Care Education/Training Program
PROC: 8E0Y0CZ Robotic Assisted Procedure of Lower Extremity, Open Approach (ICD-10-PCS; CPT 27130; principal; 2023-12-03 07:00)
DX: M16.11 Unilateral primary osteoarthritis, right hip (principal); J45.909 Unspecified asthma, uncomplicated; Z79.82 Long term (current) use of aspirin
CPT/HCPCS: 20985; 27447; 36415; 73502; 76000; 80048; 85025; 86850; 86900; 97110; 97116; 97161; 97165; 97530; C1713; C1776; G0378; J0131; J0690; J1100; J1170; J1885; J2250; J2371; J2405; J2704; J3010; J3370; J3490; J7030; J7120

== ENCOUNTER → 2023-12-18 13:13 | Outpatient (BNVA) | payer MEDICARE, OTHER, SELFPAY | PROVIDERS: PCP Family Medicine; Visit Provider Student in an Organized Health Care Education/Training Program | DX: Z96.641 Presence of right artificial hip joint | CPT/HCPCS: 73502; 99024 ==

== ENCOUNTER → 2024-10-23 13:51 | Outpatient (BNVA) | payer MEDICARE, OTHER, SELFPAY | PROVIDERS: PCP Family Medicine; Visit Provider Student in an Organized Health Care Education/Training Program | DX: Z96.641 Presence of right artificial hip joint (principal); M54.9 Dorsalgia, unspecified; R03.0 Elevated blood-pressure reading, without diagnosis of hypertension | CPT/HCPCS: 73502; 99213 ==

== ENCOUNTER → 2024-11-04 10:36 | Outpatient (BNVA) | payer MEDICARE, OTHER, SELFPAY | PROVIDERS: PCP Family Medicine; Visit Provider Orthopaedic Surgery | DX: M43.16 Spondylolisthesis, lumbar region (principal); Z01.818 Encounter for other preprocedural examination | CPT/HCPCS: 36415; 72110; 80053; 81001; 85025; 99214 ==

== ENCOUNTER → 2024-11-21 09:20 | Outpatient (BNVA) | payer MEDICARE, OTHER, SELFPAY | PROVIDERS: PCP Family Medicine; Visit Provider Family Medicine | DX: Z01.818 Encounter for other preprocedural examination (principal); I45.10 Unspecified right bundle-branch block; I44.5 Left posterior fascicular block | CPT/HCPCS: 93005 ==

== ENCOUNTER 2024-12-03 15:50 | Inpatient (IN) | payer MEDICARE, OTHER, SELFPAY ==
[2024-12-03] VITALS (24 sets, daily range): BP systolic 109–198; BP diastolic 58–92; PULSE 58–77; RESP 14–18; TEMP 36.1–36.9; O2SAT 91–100; BMI 24.0
--- NOTE | 2024-12-03 08:38 | ANES.PREANE2 ---
Pre-Anesthetic Assessment Height/Weight: Height 5 ft 4 in Weight 140 lb Temp Pulse Resp BP Pulse Ox O2 Del Method 97.9 F 59 L 17 198/92 99 Room Air 12/03/24 08:28 12/03/24 08:28 12/03/24 08:28 12/03/24 08:28 12/03/24 08:28 12/03/24 08:28 Preop Diagnosis: Lumbar stenosis with neurogenic claudication Operation Date: 12/03/24 09:25 Proposed Procedures p Posterior Lumbar Interbody Fusion PLIF(Not Applicable) - Rei Aguirre, DO Was Beta Nilda taken within 24 hours: N/A Was Clonidine taken within 24 hours: N/A Social No alcohol and No tobacco Exam alert, oriented x 3, clear to auscultation bilaterally and regular rate & rhythm Airway Submandibular: within normal limits Cervical ROM: within normal limits Mallampati: Class II Dentition: full Anesthetic Plan ASA status: 3 Anesthesia: General Other: No prior issues with anesthesia NPO since yesterday evening History of asthma, controlled with just albuterol Patient states that she has had a high blood pressure for years but when she takes it at home it is normal. Preop BP 198/92 today Recent labs reviewed acceptable for procedure EKG showing sinus rhythm with RBBB and a fascicular block Patient has very active and takes care of her Plan for GETA Medications/Allergies Home Medications ?Medication ?Instructions ?Recorded ?Confirmed ?Last Taken ?Type albuterol sulfate 90 mcg/actuation 2 puff inhalation Q6H PRN 11/30/23 12/02/24 12/02/24 History aerosol inhaler Shortness Of Breath Bone Growth Stimulator #1 ea 11/25/24 Unknown Rx Allergies Allergy/AdvReac Type Severity Reaction Status Date / Time No Known Allergies Allergy Verified 11/21/24 09:38 [facility] Anesthesia Social History Smoking and tobacco/nicotine status: never used tobacco/nicotine Marital status: Data Anesthesia Cardiac Studies: No Data to Display
[2024-12-03] MEDS: sodium chloride 0.9% 1,000 ML 30 ML IV (08:51)
--- NOTE | 2024-12-03 09:41 | P.HP_ITS ---
Same Day Surgery H&P Indication for Procedure/HPI DATE OF PROCEDURE: December 03, 2024 CHIEF COMPLAINT/INDICATIONFOR SURGICAL PROCEDURE: Back and leg pain PREOP DIAGNOSIS: Lumbar stenosis with neurogenic claudication PLANNED PROCEDURE: Operation Date: 12/03/24 09:25 Proposed Procedures p Posterior Lumbar Interbody Fusion PLIF(Not Applicable) - Rei Aguirre, DO Medications/Allergies* Home Medications ?Medication ?Instructions ?Recorded ?Confirmed ?Type albuterol sulfate 90 mcg/actuation 2 puff inhalation Q 6H PRN 11/30/23 12/02/24 History aerosol inhaler Shortness Of Breath Allergies/Adverse Reactions Allergy/AdvReac Type Severity Reaction Status Date / Time No Known Allergies Allergy Verified 11/21/24 09:38 Current Medications: Generic Name Dose Route Start Last Admin Trade Name Freq PRN Reason Stop Dose Admin Sodium Chloride 1,000 mls @ 30 mls/hr 12/03/24 08:15 12/03/24 08:51 Sodium Chloride 0.9% IV 12/04/24 08:14 30 mls/hr .Q24H BOONE Administration Pertinent History/Comorbid Conditions* Social History Smoking and tobacco/nicotine status: never used tobacco/nicotine Marital status: Pertinent Exam Findings alert, oriented x 3 and procedure specific exam findings Recommendations Surgery/Procedure today Coding Level of Care Code Acute Code for Chg Fwd
[2024-12-03] MEDS: ceFAZolin 2,000 mg SDV 2000 MG IVP ×2 (10:04→16:47)
[2024-12-03] MEDS: heparin, porcine 1,000 unit/mL INJ 10 mL 6000 UNIT IRRIGATION (12:49)
[2024-12-03] MEDS: lidocaine-epi 1% 20 mL INJ INJECTION (12:49)
[2024-12-03] MEDS: VANCOMYCIN ADD-Vantage 1,000 MG VIAL 1000 MG XX (12:49)
--- NOTE | 2024-12-03 13:59 | XR_ITS ---
WS: [id number] XR lumbar spine 2-3V* [id number] REASON FOR EXAM: or pic, lumbar fusion FINDINGS: Posterior decompression with bilateral pedicle screws L4-S1. Interconnecting rods L4-S1. Surgical appliances are intact and in proper position and alignment. XR/XR lumbar spine 2-3V* [id number] IMPRESSION: Posterior lumbar fusion as above.
--- NOTE | 2024-12-03 14:15 | P.OP_ITS ---
Operative Report Date of procedure: December 03, 2024 Pre-op diagnosis: Lumbar stenosis with neurogenic claudication L5-S1 spondylolisthesis Post-op diagnosis: same Procedure done: 1. L4/5 Interbody anterior fusion 2. L5/S1 interbody anterior fusion 3. Instrumentation L4-S1 posteriorly 4. Posterolateral fusion from L4-S1 5. Cage at L4/5 6. Cage at L5-S1 7. L4/L5 Laminectomy with partial facetectomies 8. L5-S1 laminectomy with partial facetectomies 9. Use of computer navigation stereotactic for the spine 10. use of autograft from same incision 11. allograft 12. Bone marrow aspirate from right iliac crest Surgeon: Rei Aguirre DO Estimated blood loss (mL): 200 Procedure: 1. L4/5 Interbody anterior fusion 2. L5/S1 interbody anterior fusion 3. Instrumentation L4-S1 posteriorly 4. Posterolateral fusion from L4-S1 5. Cage at L4/5 6. Cage at L5-S1 7. L4/L5 Laminectomy with partial facetectomies 8. L5-S1 laminectomy with partial facetectomies 9. Use of computer navigation stereotactic for the spine 10. use of autograft from same incision 11. allograft 12. Bone marrow aspirate from right iliac crest Patient was brought to the operative suite after being placed in the prone position. All his impingement well-padded. Biplanar fluoroscopy was brought in order to place the anterior cages. Using the AP fluoroscopy the with the body was measured in the skin incision made exactly 1 body with lateral on the left side to the interbody space. Attention was brought to doing the interbody cage at L5-S1. This was done by using the ostiaomesnataliya from spineology. Skin incision was made lateral to the disc space on AP fluoroscopy. The starting pin was inserted this has the ability to have neurostimulation. Ensured that the nerve was not compromised during the procedure. The neurostimulator tube was docked in Codman's triangle. This was just anterior to the transverse process. And lateral to the facet joint. The tube was then placed over the neurostimulator. This is the working tube that I will be working through to place the cage. A drill was then inserted under AP and lateral fluoroscopy. This was then followed by shaver. Shaver was backed in and out in order to get good endplate scraping. And then the forward pushing and the backward pushing scrapers of the endplates were then used. Pituitaries used to remove disc material. The space was then irrigated. Then the [place] mesh was then inserted into the disc space. AP lateral fluoroscopy ensured there is good position. And then the ostial mesh was packed with bone graft 12 segments or 2 tubes or 4 cc of bone graft were used in order to facilitate placement of the L5-S1 interbody cage. Attention was brought to doing the interbody cage at L4/5. This was done by using the ostiaomesh from spine[employer]. Skin incision was made lateral to the disc base on AP fluoroscopy. The starting pin was inserted this has the ability to have neurostimulation. Ensured that the nerve was not compromised during the procedure. The neurostimulator tube was docked in Codman's triangle. This was just anterior to the transverse process. And lateral to the facet joint. The tube was then placed over the neurostimulator. This is the working tube that I will be working through to place the cage. A drill was then inserted under AP and lateral fluoroscopy. This was then followed by shaver. Shaver was backed in and out in order to get good endplate scraping. And then the forward pushing and the backward pushing scrapers of the endplates were then used. Pituitaries used to remove bone graft. The space was then irrigated. Then the [place] mesh was then inserted into the disc base. AP lateral fluoroscopy ensured there is good position. And then the ostial mesh was packed with bone graft 15 segments or 2.5 tubes were used in order to facilitate placement of the L5-S1 interbody cage. Next attention was brought to the midline. Skin incision was made over the L4- S1 levels. Thoracolumbar fascia was identified the fascia was split and subperiosteal dissection was made out to the transverse processes of L4, L5 and the sacral ala. This was done bilaterally. Next attention was brought to obtain the bone marrow aspirate. This was done by using the Marco Vasco cell bone marrow aspiration kit. The starting needle was inserted and then aspirated. And then with the blunt tube the Regeneten cell needle was inserted deeper into the iliac crest. This was done on the right side. And then 10 cc of bone marrow aspirate were removed. This was then used for the bone graft. Next attention was brought to placing the pins into the right iliac crest. The fiducial was attached to the pin. C-arm was brought in and the serum and spun around the patient and this information was loaded the computer for use. Computer navigated placement of the screws. Screws were then placed at L4 bilaterally L5 bilaterally and S1 bilaterally. This was done using computer navigation. The awl was used to identify the pedicle and the pedicle feeler was then used followed by placing the screw using computer navigation. Next attention was brought to performing the laminectomies. A laminectomy was performed at the L5-S1 level. This was done by doing a laminectomy of L5 using high-speed bur curved curette and Kerrison rongeur the lamina was taken down ligamentum flavum was taken down from L5-S1. Medial aspect of the facet was drilled down and then the curette and Kerrisons were used to remove the bone and allow the decompression of the S1 nerve root around the S1 pedicle as well as the L5 nerve root L5/ S1 foramen. Next attention was brought to the L4-5 level. This was done by performing laminectomy using the high-speed bur curved curettes and Kerrison rongeur. Ligamentum flavum was taken down from L4-L5. The medial aspect of the facet joint was drilled down and the Kerrison rongeur was used to remove the remaining bone. The L4 nerve was traced out the L4-5 foramen and the L5 nerve was traced around the L5 pedicle. Next attention was brought to placing the rods from L4-S1 this was done bilaterally. Skin screw caps were placed. The screw caps were then torqued. This was done bilaterally. Next attention was brought to placing bone graft in the posterior lateral gutters. This was done by drilling the transverse processes and packing the gutters with allograft which was ostial amp as well as autograft. Wounds were irrigated vancomycin powder was placed deep drain was placed and wound was closed in a layered fashion with 0 Vicryl 2-0 Vicryl and Monocryl suture. Sterile dressings were applied patient was transferred to the PACU in stable condition.
[2024-12-03] MEDS: fentaNYL 50 mcg/mL INJ 2mL IVP ×2 (14:28→14:35)
--- NOTE | 2024-12-03 15:32 | SUR.EXTENDED ---
report was called to [facility] for patient to go to room 251-2. All questions answered, RN to move patient to floor.
[2024-12-03] MEDS: docusate sodium 100 mg Capsule PO (16:46)
[2024-12-03] MEDS: lactated ringers 1,000 ML 90 ML IV (16:50)
[2024-12-03] MEDS: HYDROcodone-acetaminophen 5-325 mg Tablet PO ×2 (17:00→21:48)
[2024-12-03] MEDS: alum-mag-hydroxide-sime 30 mL UDC PO (21:24)
[2024-12-04] VITALS: BP 115/71; PULSE 62; RESP 17; TEMP 36.8; O2SAT 96
[2024-12-04] MEDS: ondansetron 2 mg/ML SDV 2 mL 4 MG IVP (02:57)
[2024-12-04] MEDS: ceFAZolin 2,000 mg SDV 2000 MG IVP ×2 (02:57→11:11)
[2024-12-04] MEDS: lactated ringers 1,000 ML 90 ML IV (03:43)
[2024-12-04 04:00] VITALS: BP 118/68; PULSE 69; RESP 17; TEMP 37.1; O2SAT 95
[2024-12-04 07:20] VITALS: BP 102/58; PULSE 66; RESP 17; TEMP 36.8; O2SAT 91
[2024-12-04] MEDS: docusate sodium 100 mg Capsule PO (08:09)
[2024-12-04] MEDS: ketorolac 30 mg/mL INJ IVP (08:10)
[2024-12-04 09:30] VITALS: PULSE 63; RESP 16; O2SAT 96
[2024-12-04 11:01] VITALS: BP 117/65; PULSE 69; RESP 17; TEMP 37.4; O2SAT 96
--- NOTE | 2024-12-04 13:54 | PM.DCS ---
Discharge Providers Date of Admission: 12/03/24 15:50 Date of Discharge: December 04, 2024 Attending Provider at Admission: Rei Aguirre DO Attending Provider at Discharge: Rei Aguirre DO Primary Care Provider: Az Eisenberg Reason for Visit Reason for Visit: M43.16 Physical Exam Narrative: Patient seen at bedside doing well no complaints. Urinary Catheter Management: Anderson: Cath Placed During This Visit: yes, but has since been removed by the nurse Reason for Continuing Indwelling Catheter: Other Urinary Catheter Date of Insertion: 12/03/24 Urinary Catheter Time of Insertion: 10:30 Date Urinary Catheter Removed: 12/04/24 Time Urinary Catheter Discontinued: 05:55 Discharge Data Studies Completed and Pending Completed Studies During Hospitalization Category Date Time Status XR lumbar spine 2-3V* [id number] Routine Exams 12/03/24 13:59 Completed Radiology Impressions Lumbar Spine X-Ray 12/03/24 13:59 IMPRESSION: Posterior lumbar fusion as above. Laboratory Results Blood Type A Negative 12/03/24 08:35 Rho(D) Type Rh negative 12/03/24 08:35 Antibody Screen Negative 12/03/24 08:35 Vitals Last Vital Signs Temp 99.3 F 12/04/24 11:01 Pulse 69 12/04/24 11:01 Resp 17 12/04/24 11:01 BP 117/65 12/04/24 11:01 Pulse Ox 96 12/04/24 11:01 O2 Del Method Room Air 12/04/24 11:01 O2 Flow Rate 6 12/03/24 14:14 Discharge Plan Discharge Patient Disposition: Home Condition: Stable Prescriptions: New hydrocodone-acetaminophen 5-325 mg tablet 1 - 2 tab PO .Q4-6H Qty: 40 0RF Continued (DME) Bone Growth Stimulator See Rx Instructions .Route .MEDSUPPLY Qty: 1 0RF Rx Instructions: As directed albuterol sulfate 90 mcg/actuation HFA aerosol inhaler 2 puff INHALATION Q6H PRN (Reason: Shortness Of Breath) Discharge Orders: Discharge Order (Routine); Ordered 12/04/24 Ordered By: Rei Aguirre Referrals: Rei Aguirre DO [Physician] - 12/16/24 1:30 pm Az Eisenberg [Primary Care Provider] - 12/08/24 10:00 am Discharge Diet: Advance as tolerated Discharge Activity: Limit activity as instructed Patient Instructions: Acute Wound Care (DC), Opioid Safety, Post Anesthesia Care Activity Restrictions/Additional Instructions: Thank you for [facility] for your care! The following is a list of instructions, from your provider, to follow upon your discharge to ensure you have the optimal recovery from your recent injury orsurgery. Follow-up care is a guaman part of your treatment and safety. Be sure to make and go to all appointments, and call your doctor if you are having problems. If you do not already have a follow-up appointment made, call Dr. Aguirre office in the next 1-3 days to make follow up appointment for 1 weeks at [phone]. It is also a good idea to know your test results and keep a list of the medicines you take. Medications will be prescribed for you at your provider's discretion. These medications are to be used as instructed; if they are taken more often that prescribed they will not be refilled early and in most cases will not be refilled at all. > When a refill is needed,you should contact marv jeffery 2-3 business days before your prescription runs out. Medications will NOT be refilled by international travel consultant providers after hours! > Many pain medications contain Tylenol (Acetaminophen). Do not consume more than 4,000 mg of Tylenol per day in total with any combination ofmedications. > Pain medications can cause constipation. Please use an over the counter stool softener as directed, while taking pain medications. Consulty our local pharmacist with questions or recommendations on stool softeners. If constipation persists, contact our office or your primary care provider. > While under our care,you are not to receive pain medications or other controlled substances from any other provider unless our office is notified and approves. Any attempts to do so will result in refusal to prescribe any further pain medications and possible dismissal from our practice. ? Follow-up in 1 week we will change dressing ? Walking is essential for the healing process after surgery. We would like you to slowly advance your walking. This should be done on relatively flat clear ground (inside or out) or can be done on a treadmill. Remember this goal does not have to happen all at once, slowly increase your distance and duration. This can be broken into more more than one walk per day as tolerated. Patients who walk as directed after surgery rarely require Physical Therapy. In the unlikely event this issue arises your provider will direct hospital staff to make the appropriate arrangements. ? No lifting over 5 pounds {a gallon of milk) or bending/twisting until further notice. Each of these activities places an unnecessary amount of stress onto the body and can impede the delicate healing process. > Instead of bending at the waist, keep your back straight and bend at the knees. > Instead of twisting your torso, keep your back straight and turn your entire body with your feet. ? You may sleep in any position which makes you comfortable. Many patients find comfort sleeping in a reclining chair. It is not abnormal to have difficulty sleeping for the first several weeks following your surgery. We recommend trying Benadry! or Tylenol PM as directed to help with your sleeping difficulties. Both medications are over the counter and available withoutprescription. ? NO SMOKING!!! Smoking dramatically increases the probability of developing postoperative wound infections. ? Common complaints after lumbar and/or thoracic spine surgery include, but are not limited to: numbness and/or tingling in the legs, pain around the incision and surrounding tissues, muscle spasms, or stiffness of the middle to low back. Contact our office if these symptoms persist or if an acute change occurs. ? No driving for the first 3-5days, and not while taking narcotics [] until seen at your follow-up appointment and cleared. There are no restrictions for riding on short trips, however if you take a longer trip, arrangements should be made to make regular stops to get out of the vehicle and stretch . ? Swelling is an unfortunate event that will take place with any surgery and is the primary source of your postoperative discomfort. While walking and regular approved activities helps control inflammation, there are additional steps you can take to minimizeswelling. > Place ice over the surgical site and surrounding tissue for twenty minutes, followed by applying a low/medium heat (heating pad) for an additional twenty minutes every 1-2 hours as needed for painrelief. > You may use of over the counter anti-inflammatory medications (Ibuprofen, Motrin, Aleve, Advil, etc) as directed on the package label. These types of medicines wm significantly reduce the amount of discomfort you experience after surgery from swelling. It should be noted that if you have and allergy to any of these medications, or a history of ulcers or kidney disease you should consult you primary care provider prior to starting these medications. Discharge Attestations Time Spent in Discharge Care*: less than 30 min Quality Metrics Clinical Quality Measures [ No reported AMI, CVA or VTE this stay] Coding Level of Care Code Acute Code for Chg Gigi
[2024-12-04 14:58] VITALS: BP 117/65; PULSE 69; RESP 17; TEMP 37.4; O2SAT 96
--- NOTE | 2024-12-04 15:16 | PC.NURSE ---
Discharge delayed waiting on ride
== END 2024-12-04 15:49 | disposition home or self-care (01) | DRG 428 ==
LOC: MEDSURG 15:52
PROVIDERS: Admitting Provider Orthopaedic Surgery; PCP Family Medicine; Visit Provider Orthopaedic Surgery
PROC: 0SG00AJ Fusion of Lumbar Vertebral Joint with Interbody Fusion Device, Posterior Approach, Anterior Column, Open Approach (ICD-10-PCS; CPT 22612; principal; 2024-12-03 09:25)
DX: M48.062 Spinal stenosis, lumbar region with neurogenic claudication (principal); M43.17 Spondylolisthesis, lumbosacral region; J45.909 Unspecified asthma, uncomplicated; I45.10 Unspecified right bundle-branch block; I44.60 Unspecified fascicular block
CPT/HCPCS: 36415; 51702; 72100; 76000; 86850; 86900; 97161; C1713; C1762; C1781; C9359; J0131; J0330; J0690; J1100; J1171; J1644; J1885; J2405; J2704; J3010; J3370; J3490; J7030; J7120; P9045

== ENCOUNTER → 2024-12-16 12:54 | Outpatient (BNVA) | payer MEDICARE, OTHER, SELFPAY | PROVIDERS: PCP Family Medicine; Visit Provider Orthopaedic Surgery | DX: Z98.1 Arthrodesis status (principal) | CPT/HCPCS: 99024 ==

== ENCOUNTER → 2025-01-13 10:48 | Outpatient (BNVA) | payer MEDICARE, OTHER, SELFPAY | PROVIDERS: PCP Family Medicine; Visit Provider Orthopaedic Surgery | DX: Z98.1 Arthrodesis status (principal) | CPT/HCPCS: 72100; 99024 ==

== ENCOUNTER → 2025-02-24 10:31 | Outpatient (BNVA) | payer MEDICARE, OTHER, SELFPAY | PROVIDERS: PCP Family Medicine; Visit Provider Orthopaedic Surgery | DX: Z98.1 Arthrodesis status (principal) | CPT/HCPCS: 72100; 99024 ==